=== PATIENT | female | born 1960 | race Caucasian/White ===

== ENCOUNTER → 2017-07-20 | Outpatient (CLI) | payer MEDICARE ==
[~2017-07-20] MED LIST: ALBU90OI INH; ALBU90OI61 INH; ALPR.5 PO
== END ==
LOC: LAB 16:14 → LAB SHORT 16:14
DX: R10.2 Pelvic and perineal pain (principal)
CPT/HCPCS: 87086

== ENCOUNTER 2022-06-25 04:22 | Inpatient (IN) | payer OTHER ==
[~2022-06-25] VITALS: Ht 157.5 cm; Wt 74.8 kg
[~2022-06-25 04:22] MED LIST changes: +ALBU2.5V5; +BREO ELLIPTA 11 EACH INH; +BUSP5 PO; +LEVO750 PO; +MONT10T PO; +PARO10 PO
[2022-06-25 05:16] LABS: BASOPHILS ABSOLUTE AUTO 0.07 K/mm3 (0.00-0.23); BASOPHILS PERCENT AUTO 0 % (0-2); EOSINOPHILS ABSOLUTE AUTO 0.15 K/mm3 (0.00-0.68); EOSINOPHILS PERCENT AUTO 1 % (0-6); Hemoglobin 12.7 g/dL (11.5-16.0); IMMATURE GRAN PERCENT AUTO 1 % (0-1); LYMPHOCYTES ABSOLUTE AUTO 2.57 K/mm3 (0.84-5.20); LYMPHOCYTES PERCENT AUTO 15 % (21-46); MONOCYTES ABSOLUTE AUTO 0.85 K/mm3 (0.16-1.47); MONOCYTES PERCENT AUTO 5 % (4-13); Mean Corpuscular HGB 30.5 pg (26.0-34.0); Mean Corpuscular HGB Conc 34.3 g/dL (31.5-36.5); Mean Corpuscular Volume 89 fL (80-100); Mean Platelet Volume 9.3 fL (9.1-12.4); NEUTROPHILS ABSOLUTE AUTO 13.94 K/mm3 (1.96-9.15); NEUTROPHILS PERCENT AUTO 79 % (41-73); Platelet Count 261 K/mm3 (150-400); RDW Coefficient Variation 12.6 % (11.7-14.2); RDW Standard Deviation 41.1 fL (35.1-46.3); Red Blood Cell Count 4.16 M/mm3 (3.80-5.20); White Blood Cell Count 17.68 K/mm3 (4.00-11.30)
[2022-06-25 05:26] LABS: Albumin, Blood 3.9 g/dL (3.4-5.0); Bilirubin, Total 0.4 mg/dL (0.1-1.0); Bun/Creatinine Ratio 19.9 (12.0-20.0); Calcium, Blood 9.5 mg/dL (8.5-10.1); Creatinine, Blood 0.45 mg/dL (0.40-1.00); Globulin, Blood 4.1 g/dL (2.2-4.0); Potassium, Blood 4.2 mmol/L (3.5-5.5)
--- NOTE | 2022-06-25 09:57 | NUR ---
LAB NOTIFIED RN OF CRITICAL LAB VALUE FOR PT, A LACTIC ACID OF 6.7. PROVIDER NOTIFIED, NO NEW ORDERS AT THIS TIME.
[2022-06-25] MEDS ORDERED: FLUO10 PO (10:34)
[2022-06-25] MEDS ORDERED: BREO ELLIPTA 11 EAC1 INH (10:36)
[2022-06-25] MEDS ORDERED: ALBU90OI INH (10:37)
--- NOTE | 2022-06-25 16:41 | NUR ---
SHIFT SUMMARY PT AOX4, INDEPENDENT IN THE ROOM. SHE WAS A NEW ED ADMIT AT THE START OF THE SHIFT. SHE HAS C/O PAIN AND MEDICATED PER THE EMAR. CURRENTLY HAS FLUIDS RUNNING AT 75/HOUR AFTER RECEIVING A FLUID BOLUS UPON HER ARRIVAL TO THE FLOOR. SHE HAS A LACTIC ACID OF 6.7 OF THIS AM, PROVIDER IS AWARE AND ORDERED THE FLUIDS. SHE IS ON 3 L NC, 2-3 L NC IS HER BASELINE AT HOME. SHE HAS BEEN COUGHING UP SPUTUM AND PROVIDER ORDERED MUCINEX. SHE HAS BEEN PLEASANT AND COOPERATIVE, MAKING HER NEEDS KNOWN. CALL LIGHT IS WITHIN REACH AND THE BED IN THE LOWEST POSITION. WILL REPORT TO ONCOMING NURSE.
[2022-06-26 05:03] LABS: BASOPHILS ABSOLUTE AUTO 0.03 K/mm3 (0.00-0.23); BASOPHILS PERCENT AUTO 0 % (0-2); EOSINOPHILS PERCENT AUTO 0 % (0-6); Hematocrit 36.4 % (33.0-51.0); Hemoglobin 12.1 g/dL (11.5-16.0); IMMATURE GRAN ABSOLUTE AUTO 0.17 K/mm3 (0.00-0.10); IMMATURE GRAN PERCENT AUTO 1 % (0-1); LYMPHOCYTES ABSOLUTE AUTO 1.36 K/mm3 (0.84-5.20); LYMPHOCYTES PERCENT AUTO 7 % (21-46); MONOCYTES ABSOLUTE AUTO 0.28 K/mm3 (0.16-1.47); MONOCYTES PERCENT AUTO 2 % (4-13); Mean Corpuscular HGB 30.1 pg (26.0-34.0); Mean Corpuscular HGB Conc 33.2 g/dL (31.5-36.5); Mean Corpuscular Volume 91 fL (80-100); Mean Platelet Volume 9.2 fL (9.1-12.4); NEUTROPHILS ABSOLUTE AUTO 17.19 K/mm3 (1.96-9.15); NEUTROPHILS PERCENT AUTO 90 % (41-73); Platelet Count 283 K/mm3 (150-400); RDW Coefficient Variation 12.9 % (11.7-14.2); RDW Standard Deviation 42.5 fL (35.1-46.3); Red Blood Cell Count 4.02 M/mm3 (3.80-5.20); White Blood Cell Count 19.03 K/mm3 (4.00-11.30)
[2022-06-26 05:29] LABS: Albumin, Blood 3.8 g/dL (3.4-5.0); Bilirubin, Total 0.4 mg/dL (0.1-1.0); Calcium, Blood 9.6 mg/dL (8.5-10.1); Creatinine, Blood 0.49 mg/dL (0.40-1.00); Magnesium, Blood 2.4 mg/dL (1.6-2.4); Potassium, Blood 3.9 mmol/L (3.5-5.5); Total Protein, Blood 7.8 g/dL (6.4-8.2)
--- NOTE | 2022-06-26 07:31 | NUR ---
MACHINE REPAIR PERSON SUMMARY: A&Ox4. PLEASANT AND COOPERATIVE WITH CARE. CALLS APPROPRIATELY AND IS ABLE TO COMMUNICATE NEEDS EFFECTIVELY. PRN APAP ADMINISTERED FOR C / O HEADACHE WITH LITTLE RELIEF. BLOOD PRESSURE ELEVATED LAST NIGHT; RECEIVED ORDER FOR HYDRALAZINE 5MG Q6H SBP >160. COMPLETED DOSE LR. LABS DRAWN THIS AM; NO CRITICAL RESULTS RECEIVED. REPORT TO ONCOMING RN.
--- NOTE | 2022-06-26 17:58 | NUR ---
SHIFT SUMMARY PT AOX4, NO ACUTE CHANGES. PT IS RUNNING A BIT HYPERTENSIVE AND WAS ADMINISTERED HYDRALYZINE PER THE EMAR. PT REMAINS AT BASELINE O2 AT 2-3 L NC AND SATING >92%. PLAN IS FOR HER TO POTENTIALLY DISCHARGE TOMORROW. LACTIC ACID HAS SIGNIFICANTLY DECREASED, PT AWARE. WILL REPORT TO ONCOMING NURSE.
--- NOTE | 2022-06-27 04:16 | NUR ---
OCCUPATIONAL THERAPIST PER DIEM SUMMARY NO ACUTE EVENTS THROUGHOUT THE NIGHT. A&OX4. PATIENT EFFECTIVELY COMMUNICATES NEEDS. RR EVEN AND UNLABORED ON 3L/MIN O2 WHILE AT REST. PATIENT DONS 2-3L/MIN O2 AT BASELINE. VSS. PRN HYDRALAZINE ADMINISTERED PER ORDERS FOR SBP >160. PATIENT APPEARED TO SLEEP WELL THIS SHIFT. BED LOW AND LOCKED. CALL LIGHT WITHIN REACH. THIS RN WILL CONINTUE TO MONITOR.
[2022-06-27 04:53] LABS: Hematocrit 34.8 % (33.0-51.0); Hemoglobin 11.6 g/dL (11.5-16.0); Mean Corpuscular HGB Conc 33.3 g/dL (31.5-36.5); Mean Corpuscular Volume 90 fL (80-100); Mean Platelet Volume 9.2 fL (9.1-12.4); Platelet Count 286 K/mm3 (150-400); RDW Coefficient Variation 13.2 % (11.7-14.2); RDW Standard Deviation 43.5 fL (35.1-46.3); Red Blood Cell Count 3.87 M/mm3 (3.80-5.20); White Blood Cell Count 23.02 K/mm3 (4.00-11.30)
[2022-06-27 05:13] LABS: Albumin, Blood 3.6 g/dL (3.4-5.0); Anion Gap 6 mmol/L (6-16); Blood Urea Nitrogen 21 mg/dL (8-24); Bun/Creatinine Ratio 47.9 (12.0-20.0); CO2, Blood 29 mmol/L (21-32); Calcium, Blood 9.2 mg/dL (8.5-10.1); Chloride, Blood 103 mmol/L (98-108); Creatinine, Blood 0.44 mg/dL (0.40-1.00); Glomerular Filtration Rate 110 (60-); Glucose, Blood 156 mg/dL (70-99); Phosphorus, Blood 3.7 mg/dL (2.5-4.9); Potassium, Blood 3.8 mmol/L (3.5-5.5); Sodium, Blood 138 mmol/L (136-145)
--- NOTE | 2022-06-27 17:42 | NUR ---
NOTE: CALLED PROVIDER ABOUT PT'S AFTERNOON BP AND SHE SAID NOT TO ADMINISTER ANY HYDRALYZINE AND NO NEW ORDERS WERE OBTAINED. SHE STATED OTHER FACTORS ARE PLAYING INTO THE BLOOD PRESSURE BUT TO LET HER KNOW IF THE PT STARTS TO HAVE A SEVERE KYLE OR BLURRED VISION. WILL PASS ON TO ONCOMING NURSE.
--- NOTE | 2022-06-27 17:43 | NUR ---
SHIFT SUMMARY PT AOX4, HAD WHAT APPEARED TO BE A PANIC ATTACK AT THE START OF THE SHIFT. AN ORDER FOR XANAX WAS OBTAINED FROM THE PROVIDER AND THE PT IMPROVED. THERE ARE NEW ORDERS PER THE EMAR. SINCE THAT INCIDENT, PT HAS HAD NO COMPLAINTS AND HAS BEE RESTING THIS AFTERNOON. SEE OTHER NOTE ABOUT PT'S AFTERNOON BP. WILL REPORT TO ONCOMING NURSE.
--- NOTE | 2022-06-28 03:11 | NUR ---
SENIOR ACCOUNT CLERK SUMMARY NO ACUTE EVENTS THROUGHOUT THE NIGHT. A&OX4. PATIENT EFFECTIVELY COMMUNICATES NEEDS. RR EVEN AND SLIGHTLY LABORED ON 3L/MIN O2 NC. VSS. PATIENT MEDICATED WITH XANAX PER EMAR. BED LOW AND LOCKED. CALL LIGHT WITHIN REACH. THIS RN WILL CONTINUE TO MONITOR.
[2022-06-28 05:51] LABS: BASOPHILS ABSOLUTE AUTO 0.05 K/mm3 (0.00-0.23); BASOPHILS PERCENT AUTO 0 % (0-2); EOSINOPHILS ABSOLUTE AUTO 0.03 K/mm3 (0.00-0.68); EOSINOPHILS PERCENT AUTO 0 % (0-6); Hemoglobin 11.9 g/dL (11.5-16.0); IMMATURE GRAN ABSOLUTE AUTO 0.28 K/mm3 (0.00-0.10); IMMATURE GRAN PERCENT AUTO 2 % (0-1); LYMPHOCYTES ABSOLUTE AUTO 4.51 K/mm3 (0.84-5.20); LYMPHOCYTES PERCENT AUTO 24 % (21-46); MONOCYTES PERCENT AUTO 6 % (4-13); Mean Corpuscular HGB 30.2 pg (26.0-34.0); Mean Corpuscular HGB Conc 33.1 g/dL (31.5-36.5); Mean Corpuscular Volume 91 fL (80-100); Mean Platelet Volume 9.1 fL (9.1-12.4); NEUTROPHILS ABSOLUTE AUTO 12.58 K/mm3 (1.96-9.15); NEUTROPHILS PERCENT AUTO 68 % (41-73); Platelet Count 285 K/mm3 (150-400); RDW Coefficient Variation 13.4 % (11.7-14.2); RDW Standard Deviation 45.1 fL (35.1-46.3); Red Blood Cell Count 3.94 M/mm3 (3.80-5.20); White Blood Cell Count 18.55 K/mm3 (4.00-11.30)
[2022-06-28 06:07] LABS: Albumin, Blood 3.4 g/dL (3.4-5.0); Anion Gap 4 mmol/L (6-16); Blood Urea Nitrogen 20 mg/dL (8-24); Bun/Creatinine Ratio 37.7 (12.0-20.0); CO2, Blood 31 mmol/L (21-32); Calcium, Blood 8.9 mg/dL (8.5-10.1); Chloride, Blood 103 mmol/L (98-108); Creatinine, Blood 0.53 mg/dL (0.40-1.00); Glomerular Filtration Rate 105 (60-); Glucose, Blood 88 mg/dL (70-99); Phosphorus, Blood 4.2 mg/dL (2.5-4.9); Potassium, Blood 3.3 mmol/L (3.5-5.5); Sodium, Blood 138 mmol/L (136-145)
[2022-06-28] MEDS ORDERED: ALPR.25 PO (11:20)
[2022-06-28] MEDS ORDERED: GUAI600T33 PO (11:20)
[2022-06-28] MEDS ORDERED: VISBIOME 112.51 EACH PO (11:21)
[2022-06-28] MEDS ORDERED: AZIT500 PO (11:22)
[2022-06-28] MEDS ORDERED: ALBU2.5V5 INH (11:22)
[2022-06-28] MEDS ORDERED: CEFD300 PO (11:23)
[2022-06-28] MEDS ORDERED: Deltasone 10 mg10 MG (11:27)
--- NOTE | 2022-06-28 15:00 | NUR ---
PATIENT D/C'D TO HOME WITH FAMILY. DC INSTRUCTIONS AND EDUCATION DISCUSSED WITH PATIENT AND COPY PROVIDED. NEBULIZER DROPPED OFF HERE PRIOR TO DC. PATIENT DENIES ANY FUTHER QUESTIONS OR CONCERNS.
== END 2022-06-28 15:31 | disposition home or self-care (01) | DRG 871 ==
LOC: ER 04:22 → MEDS 06:05
PROVIDERS: Emergency Medicine; Internal Medicine; ADMIT Student in an Organized Health Care Education/Training Program
DX: A41.9 Sepsis, unspecified organism (principal); J18.9 Pneumonia, unspecified organism; J44.0 Chronic obstructive pulmonary disease with (acute) lower respiratory infection; J44.1 Chronic obstructive pulmonary disease with (acute) exacerbation; J96.11 Chronic respiratory failure with hypoxia; E87.20 Acidosis, unspecified; Z66 Do not resuscitate; R91.8 Other nonspecific abnormal finding of lung field; R91.1 Solitary pulmonary nodule; R65.20 Severe sepsis without septic shock; E87.6 Hypokalemia; F41.9 Anxiety disorder, unspecified; F41.0 Panic disorder [episodic paroxysmal anxiety]; Z79.51 Long term (current) use of inhaled steroids; Z79.899 Other long term (current) drug therapy; Z98.891 History of uterine scar from previous surgery; Z90.710 Acquired absence of both cervix and uterus; Z90.722 Acquired absence of ovaries, bilateral; Z99.81 Dependence on supplemental oxygen; Z87.891 Personal history of nicotine dependence; Z98.890 Other specified postprocedural states; Z28.21 Immunization not carried out because of patient refusal
CPT/HCPCS: 36415; 71045; 80053; 80069; 83605; 83735; 84100; 84484; 85025; 85027; 87040; 93005; 93010; 94640; 94644; 94664; 94760; 96365; 96375; 99285-25; A9270; J0360; J0456; J0696; J1650; J2405; J2920; J2930; J3010; J7030; J7050; J7512

== ENCOUNTER 2022-08-22 03:20 | Inpatient (IN) | payer OTHER ==
[2022-08-22] VITALS (22 sets, daily range): BP systolic 150–187; BP diastolic 75–138
[~2022-08-22] VITALS: Ht 157.5 cm; Wt 76.6 kg
[~2022-08-22 03:20] MED LIST changes: +ALBU2.5V5 INH; +ALPR.25 PO; +AZIT500 PO; +BREO ELLIPTA 11 EAC1 INH; +CEFD300 PO; +Deltasone 10 mg10 MG; +FLUO10 PO; +GUAI600T33 PO; +VISBIOME 112.51 EACH PO
[2022-08-22 03:35] LABS: Calcium, Ionized (POC) 1.17 mmol/L (1.10-1.46); Chloride (POC) 95 mmol/L (98-108); Creatinine (POC) 0.5 mg/dL (0.6-1.0); Glucose (ISTAT POC) 311 mg/dL (70-99); Hemoglobin (POC) 14.6 g/dL (12.0-16.0); Potassium (POC) 3.2 mmol/L (3.5-5.5); Sodium (POC) 139 mmol/L (135-148); Total CO2 (POC) 32 mmol/L (21-32)
[2022-08-22 03:37] LABS: BASOPHILS ABSOLUTE AUTO 0.08 K/mm3 (0.00-0.23); BASOPHILS PERCENT AUTO 1 % (0-2); EOSINOPHILS ABSOLUTE AUTO 0.14 K/mm3 (0.00-0.68); EOSINOPHILS PERCENT AUTO 1 % (0-6); Hematocrit 39.6 % (33.0-51.0); Hemoglobin 13.3 g/dL (11.5-16.0); IMMATURE GRAN ABSOLUTE AUTO 0.15 K/mm3 (0.00-0.10); IMMATURE GRAN PERCENT AUTO 1 % (0-1); LYMPHOCYTES PERCENT AUTO 16 % (21-46); MONOCYTES ABSOLUTE AUTO 0.61 K/mm3 (0.16-1.47); MONOCYTES PERCENT AUTO 4 % (4-13); Mean Corpuscular HGB 30.6 pg (26.0-34.0); Mean Corpuscular HGB Conc 33.6 g/dL (31.5-36.5); Mean Corpuscular Volume 91 fL (80-100); NEUTROPHILS ABSOLUTE AUTO 13.31 K/mm3 (1.96-9.15); NEUTROPHILS PERCENT AUTO 78 % (41-73); Platelet Count 288 K/mm3 (150-400); RDW Coefficient Variation 12.4 % (11.7-14.2); RDW Standard Deviation 41.4 fL (35.1-46.3); Red Blood Cell Count 4.34 M/mm3 (3.80-5.20); White Blood Cell Count 17.09 K/mm3 (4.00-11.30)
[2022-08-22 03:37] LABS: Base Excess Venous 3.4 mmol/L; Bicarbonate Venous 25.5 mmol/L (24.0-30.0); PCO2 Venous 66.4 mmHg (38-42); pH Blood Venous 7.27 (7.34-7.37)
[2022-08-22 04:01] LABS: Albumin/Globulin Ratio 1.1 (0.8-1.8); Bilirubin, Total 0.5 mg/dL (0.1-1.0); Bun/Creatinine Ratio 25.2 (12.0-20.0); Calcium, Blood 8.7 mg/dL (8.5-10.1); Creatinine, Blood 0.48 mg/dL (0.40-1.00); Globulin, Blood 3.7 g/dL (2.2-4.0); Potassium, Blood 3.2 mmol/L (3.5-5.5); Total Protein, Blood 7.7 g/dL (6.4-8.2)
[2022-08-22 04:36] LABS: Influenza A, PCR NEGATIVE (NEGATIVE); Influenza B, PCR NEGATIVE (NEGATIVE); Resp Syncytial Virus, PCR NEGATIVE (NEGATIVE); SARS-Cov-2 (COVID-19) PCR, MMC NEGATIVE (NEGATIVE)
--- NOTE | 2022-08-22 06:20 | NUR ---
PATIENT ARRIVED TO ICU 10 VIA GURNEY FROM ED WITH BIPAP 16/8 FIO2 35% IN PLACE AND RT AT BEDSIDE. PATIENT TRANSFER TO BED USING SLIDER SHEET AND PLACED ON ICU MONITOR. PATIENT AWAKENS TO SLIGHT STIMULI, SPEECH MUMBLED SLIGHTLY, FALLING BACK TO SLEEP WHEN UNDISTURBED.
--- NOTE | 2022-08-22 07:32 | NUR ---
Assumed care at 0700. Report received from tian ROBBINS. Pt resting in bed, on Bipap, 09/11, 35%. Vancomycin and K+ infusing at time of report. Pt resting comfortably, no acute needs at time of report. Will continue to monitor.
[2022-08-22 10:08] LABS: Base Excess Venous 1.8 mmol/L; Bicarbonate Venous 24.9 mmol/L (24.0-30.0); PCO2 Venous 51.1 mmHg (38-42); pH Blood Venous 7.34 (7.34-7.37)
--- NOTE | 2022-08-22 18:33 | NUR ---
Shift summary. Pt much improved throughout shift, able to come off bipap at beginning of shift, currently on 02 at 3 L/min. Able to ambulate w/o desatting, does get short of breath and tachypnic when standing and moving around. Up to bedside commode several times and in chair for much of shift. No acute events. Status changed to PCU this am per Dr. Aquino. See assessment for further details. Will continue to monitor and report off to tian ROBBINS.
--- NOTE | 2022-08-22 19:45 | NUR ---
PATIENT UP TO BSC WITH 1 PERSON STANDBY ASSIST. VERY SOB WITH SLIGHT ACTIVITY. ABLE TO MAINTAIN BIOX > 90 ON 2L/NC, ABLE TO RECOVER ONCE IN BED RESTING. LUNG SOUNDS DECREASED T/O. PATIENT VERBALIZED THAT SHE IS FEELING BETTER THAN THIS MORNING.
[2022-08-23] VITALS (12 sets, daily range): BP systolic 142–195; BP diastolic 78–91
[2022-08-23 04:00] LABS: Bun/Creatinine Ratio 20.2 (12.0-20.0); Calcium, Blood 9.3 mg/dL (8.5-10.1); Creatinine, Blood 0.79 mg/dL (0.40-1.00); Potassium, Blood 3.8 mmol/L (3.5-5.5)
[2022-08-23 06:30] LABS: Hematocrit 34.8 % (33.0-51.0); Hemoglobin 11.9 g/dL (11.5-16.0); Mean Corpuscular HGB 30.7 pg (26.0-34.0); Mean Corpuscular HGB Conc 34.2 g/dL (31.5-36.5); Mean Corpuscular Volume 90 fL (80-100); Mean Platelet Volume 9.3 fL (9.1-12.4); Platelet Count 247 K/mm3 (150-400); RDW Coefficient Variation 12.6 % (11.7-14.2); RDW Standard Deviation 41.3 fL (35.1-46.3); Red Blood Cell Count 3.87 M/mm3 (3.80-5.20); White Blood Cell Count 18.65 K/mm3 (4.00-11.30)
--- NOTE | 2022-08-23 06:39 | NUR ---
SUMMARY PATIENT SLEEPING OFF AND ON T/O NIGHT. OXYGEN 2L/NC IN PLACE T/O NIGHT, CONTINUES TO BE SOB WITH SLIGHT ACTIVITY, PATIENT VERBALIZED SHE FEELS LIKE SHE IS AT HER BASELINE. UP TO BSC WITH MIN ASSIST.
--- NOTE | 2022-08-23 09:05 | NUR ---
AM NOTE... ASSUMED CARE OF PT AT 0700, PT IS A&Ox4. SHE IS ON 2L NC WITH O2 SATS >90% L/S VERY DIM T/O WITH SOME SCATTERED WHEEZES. PT BECOMES SOB WITH ACTIVITY AND RECOVERS SLOWLY. SHE IS IN SR IN THE 90'S BP IS STABLE. NO EDEMA NOTED ON THIS ASSESSMENT. SHE IS A SBA TO THE BSC. PT IS ANXIOUS TO GO HOME TODAY BUT PLAN IS TO KEEP HER ANOTHER 24HRS AT LEAST PER DR. VALDOVINOS WILL CONTINUE TO MONITOR.
--- NOTE | 2022-08-23 13:19 | NUR ---
PT TRANSFER.... REPORT WAS GIVEN TO AIDE IN PCU, ALL OF PT'S BELONGINGS WERE PACKED AND SENT WITH THE PT. PT'S VS STABLE A THE TIME OF TRANSFER. PT'S SON AND DAUGHTER AT THE BEDSIDE DURING THIS TIME AND FOLLOWED PT TO PCU 19. PT WAS TAKEN TO PCU IN A W/C.
--- NOTE | 2022-08-23 18:53 | NUR ---
SHIFT SUMMARY PT A&OX4. COMPLIANT WITH CARE. O2 STATS HAVE MAINTAINED <90% ON 4L VIA NC. SINUS RHYTHM, SINUS TACHICARDIA, TACHYPNEA. PATIENT PREFERS TO BE INDEPENDENT IN THE ROOM. REQUIRES REMINDERS TO NOTIFY STAFF WHEN NEEDING TO GET UP DUE TO HER BREATHING. BP INCREASED FROM 160 TO 195 AT END OF SHIFT. LOWERED TO 165 WITH LABETALOL IV. WILL REPORT TO NOC NURSE TO CONTINUE MONITORING.
[2022-08-24] VITALS (9 sets, daily range): BP systolic 137–181; BP diastolic 63–109
--- NOTE | 2022-08-24 03:07 | NUR ---
PHYSICIAN COMMUNICATION CONTACTED BEAN PICKER MACHINE OPERATOR RESIDENT, DR GARCIA, TO INFORM HER THAT THE PATIENT HAD A SUDDEN CHANGE IN CONDITION. SHE BECAME SEVERELY SHORT OF BREATH, WAS TACHYCARDIC IN THE 140'S, TACHYPNIC WITH ACCESSORY MUSCLE USE, AND DESATED REQUIRING TO BE PLACED ON A NONREBREATHER WITH A BREATHING TREATMENT. RT PLACED PATIENT ON BIPAP TO HELP SUPPORT WORK OF BREATHING BUT THE PATIENT HAD ISSUES WITH ANXIETY IN THE ICU WHILE ON THE BIPAP. THIS RN ASKED DR GARCIA FOR SOMETHING TO HELP WITH THE PAITENT'S ANXIETY. DR GARCIA ORDERED A ONE TIME DOSE OF 0.5 MG ATIVAN IV. THIS RN ALSO RELAYED THAT IT HAD BEEN A WHILE SINCE THE PATIENT HAD A VBG, DR GARCIA ORDERED THIS WELL. WILL CONTINUE TO MONITOR.
[2022-08-24 03:55] LABS: Base Excess Venous 3.4 mmol/L; Bicarbonate Venous 27.4 mmol/L (24.0-30.0); PCO2 Venous 38.2 mmHg (38-42); pH Blood Venous 7.46 (7.34-7.37)
--- NOTE | 2022-08-24 06:01 | NUR ---
SHIFT SUMMARY PATIENT ALERT AND ORIENTED X4. RT PLACED PATIENT ON BIPAP THIS MORNING AND MEDICATED PER EMAR WITH ATIVAN DUE TO PATIENT'S SUDDEN ONSET OF SHORTNESS OF BREATH AND WORK OF BREATHING. HER BREATHING, WHILE STILL TACHYPNIC, HAS SLOWED AND PATIENT IS CURRENTLY RESTING QUIETLY. BLOOD PRESSURE STABLE AND HEART IS SINUS RHYTHM IN THE 90'S. WILL CONTINUE TO MONITOR. CALL LIGHT WITHIN REACH.
--- NOTE | 2022-08-24 08:29 | NUR ---
PT A&OX4. PT SITTING AT THE EDGE OF THE BED. PT STATES THAT SHE IS STILL SHORT OF BREATH. SPO2 93% ON 2L NC. PT ABLE TO WALK TO THE BATHROOM UNASSISTED TO VOID. SPO2 90% WHEN SHE GOT BACK TO BED.
--- NOTE | 2022-08-24 15:27 | NUR ---
Blood pressure 181/83(111); labetolol given per prn orders .
--- NOTE | 2022-08-24 17:11 | NUR ---
SHIFT SUMMARY PT A&OX4, COMPLIANT WITH CARE. HR 90S, SPO2 >90 ON 1.5L O2 VIA NASAL CANNULA. AT 1513 BP ELEVATED TO 181/83. LABETALOL GIVEN AND BP DECREASED TO 149/87. PT EXPERIENCED TRANSIENT DIZZYNESS WHILE STANDING AFTER MEDIATION WAS GIVEN. VITALS REMAINED STABLE. NEW ORDER FOR XANAX WAS ADDED FOR ANXIETY WITH BIPAP AT NIGHT. DENTAL HYGENIST FOUND THRUSH IN BACK OF MOUTH. PT STARTED ON NYSTATIN ORAL WASH. REPEAT CHEST XRAY DONE AND SHOWS IMPROVEMENT. CONTINUE MONITORING RESPIRATORY STATUS.
[2022-08-25] VITALS (9 sets, daily range): BP systolic 152–175; BP diastolic 76–105
--- NOTE | 2022-08-25 06:47 | NUR ---
SHIFT SUMMARY PATIENT ALERT AND ORIENTED X4. UPON INITIAL ASSESMENT, PATIENT WAS TACHYPNIC AND APPEARED TO BE SHORT OF BREATH AT REST. SHE WAS MEDICATED WITH XANAX PER EMAR AND CHOSE TO WEAR THE BIPAP OVERNIGHT. PATIENT REPORTS THAT SHE IS BREATHING BETTER THIS MORNING. VITAL SIGNS STABLE. NO ACUTE ISSUES NOTED OVERNIGHT. WILL CONTINUE TO MONITOR. CALL LIGHT WITHIN REACH.
[2022-08-25 07:07] LABS: Hemoglobin 12.4 g/dL (11.5-16.0); Mean Corpuscular HGB 30.2 pg (26.0-34.0); Mean Corpuscular HGB Conc 32.6 g/dL (31.5-36.5); Mean Corpuscular Volume 93 fL (80-100); Mean Platelet Volume 9.3 fL (9.1-12.4); Platelet Count 282 K/mm3 (150-400); RDW Standard Deviation 44.3 fL (35.1-46.3)
[2022-08-25 07:33] LABS: Bun/Creatinine Ratio 26.8 (12.0-20.0); Calcium, Blood 9.2 mg/dL (8.5-10.1); Creatinine, Blood 0.79 mg/dL (0.40-1.00)
--- NOTE | 2022-08-25 10:51 | NUR ---
PT TOOK A SHOWER TODAY AND IS SITTING IN THE CHAIR AT BEDSIDE. PT STATES "BREATHING FEELS BETTER TODAY". MEDICATED PER ORDERS. WILL CONTINUE TO MONITOR BLOOD PRESSURE.
--- NOTE | 2022-08-25 18:49 | NUR ---
SHIFT SUMMARY A&OX4, COMPLIANT WITH CARE. PT TOOK A SHOWER THIS MORNING. DR. CARTER ADDED LISINOPRIL TO HER MEDICATION TO HELP CONTROL HER BLOOD PRESSURE. NO LABETALOL WAS NEEDED DURING THE SHIFT. SPO2>91% ON 2L O2 VIA NASAL CANNULA. CONINUE TO MONITOR BP AND RESPIRATORY STATUS.
[2022-08-26 03:25] VITALS: BP 171/84
[2022-08-26 04:01] VITALS: BP 155/81
--- NOTE | 2022-08-26 04:06 | NUR ---
SHIFT SUMMARY NO ACUTE CHANGES THIS SHIFT. AXO4. IN SR/ST DEPENDING ON ACTIVITY LEVEL. HTN NOTED BUT LESS THAN THE 175SBP REQUIREMENT OF THE ORDERED PRN LABETOLOL. PT ON 2LNC WHILE AWAKE, 2L BLEEDIN TO BIPAP WHILE SLEEPING. PT HAS BEEN TOLERATING THE BIPAP POST ALPRAZOLAM DOSE. SOME ANXIETY MOMENTS NOTED, ABLE TO TALK THROUGH THEM AND KEEP MASK ON. PT HAS BEEN INDEPENDENT IN ROOM BUT USES CALL LIGHT APPROPRIATELY FOR ASSISTANCE. OTHERWISE, RESTING QUIETELY THIS SHIFT.
[2022-08-26 04:19] LABS: Bun/Creatinine Ratio 28.9 (12.0-20.0); Calcium, Blood 8.8 mg/dL (8.5-10.1); Creatinine, Blood 0.8 mg/dL (0.40-1.00); Potassium, Blood 3.9 mmol/L (3.5-5.5)
[2022-08-26 08:03] VITALS: BP 169/77
--- NOTE | 2022-08-26 14:10 | NUR ---
TRANSFER TO MEDICAL PT MADE MEDICAL NO TELE STATUS. A&O X4. VSS. SPO2 > 92% ON 2L NC WHICH IS PT's REPORTED HOME O2 USE. PT W/ LABORED BREATHING W/ ACTIVITY, BUT SPO2 REMAINING > 92%. W/ REQUEST FOR PT TO REMAIN OFF BIPAP TONIGHT IF PT NOT NEEDING. MONITOR SHOWING NSR, HR 80s-90s PRIOR TO TELEMETRY DC. PT INDEPENDENT IN RM. REPORT GIVEN TO ACCEPTING MEDICAL FLOOR RN & PT TAKEN TO RM 308 BY WHEEL CHAIR W/ BELONGINGS @ APPROX [id number].
[2022-08-26 14:22] VITALS: BP 132/73
--- NOTE | 2022-08-26 17:29 | NUR ---
PATIENT IS ALERT AND ORIENTED AND COOPERATIVE WITH CARE. PATIENT DOES C/O ANXIETY WITH WEARING THE BIPAP. DR. CHAMORRO ASKED THAT THE PATIENT TRIAL NOT WEARING THE BIPAP TONIGHT, THIS WAS PASSED ON TO THE PATIENT. SADI DID DROP OFF THE PATIENT'S HOME BIPAP THIS AFTERNOON. BP THIS AFTERNOON IS 132/73 WHICH IS DOWN FROM 169/77 THIS MORNING. THE PATIENT TRANSFERRED TO ROOM 308 THIS AFTERNOON. ON 2L O2 VIA NC. INDEPENDENT IN HER ROOM. WILL CONTINUE TO MONITOR
[2022-08-26 19:46] VITALS: BP 151/77
[2022-08-27 03:35] VITALS: BP 151/85
--- NOTE | 2022-08-27 04:33 | NUR ---
FERMENTER WINE SUMMARY VSS. UP AD ALBERTO, O2 PER NC AT 2L/MIN. LUNG SOUNDS DIMINISHED IN LOWER LOBES PER AUSCULTATION. RECEIVING ANTIBIOTICS AND RESPIRATORY MEDS TO ASSIST IN TREATMENT OF RESPIRATORY NEEDS. HAS BEEN RESTING QUIETLY WITH FEW INTERRUPTIONS. CALL LIGHT IN REACH. WILL CONTINUE TO MONITOR
[2022-08-27 07:07] VITALS: BP 121/97
[2022-08-27 14:06] LABS: BASOPHILS ABSOLUTE AUTO 0.07 K/mm3 (0.00-0.23); BASOPHILS PERCENT AUTO 1 % (0-2); EOSINOPHILS PERCENT AUTO 0 % (0-6); Hematocrit 35.2 % (33.0-51.0); Hemoglobin 11.7 g/dL (11.5-16.0); IMMATURE GRAN ABSOLUTE AUTO 0.58 K/mm3 (0.00-0.10); IMMATURE GRAN PERCENT AUTO 4 % (0-1); LYMPHOCYTES ABSOLUTE AUTO 1.08 K/mm3 (0.84-5.20); LYMPHOCYTES PERCENT AUTO 8 % (21-46); MONOCYTES ABSOLUTE AUTO 0.35 K/mm3 (0.16-1.47); MONOCYTES PERCENT AUTO 3 % (4-13); Mean Corpuscular HGB 30.6 pg (26.0-34.0); Mean Corpuscular HGB Conc 33.2 g/dL (31.5-36.5); Mean Corpuscular Volume 92 fL (80-100); Mean Platelet Volume 9.5 fL (9.1-12.4); NEUTROPHILS ABSOLUTE AUTO 11.59 K/mm3 (1.96-9.15); NEUTROPHILS PERCENT AUTO 85 % (41-73); NRBC ABSOLUTE 0.03 K/mm3 (0.00-0.02); NRBC Auto 0.2 /100 WBC (0.0-0.2); Platelet Count 269 K/mm3 (150-400); RDW Coefficient Variation 13.1 % (11.7-14.2); RDW Standard Deviation 43.6 fL (35.1-46.3); Red Blood Cell Count 3.82 M/mm3 (3.80-5.20); White Blood Cell Count 13.67 K/mm3 (4.00-11.30)
[2022-08-27 14:23] LABS: Bun/Creatinine Ratio 29.1 (12.0-20.0); Calcium, Blood 8.3 mg/dL (8.5-10.1); Creatinine, Blood 0.86 mg/dL (0.40-1.00)
[2022-08-27 15:43] VITALS: BP 165/69
--- NOTE | 2022-08-27 15:54 | NUR ---
PATIENT IS ALERT AND ORIENTED AND COOPERATIVE WITH CARE. PATIENT REPORTS THAT SHE DID NOT USE THE BIPAP OVERNIGHT. SHE IS INDEPENDENT IN THE ROOM. ON 2L O2 VIA NC. C/O DYSPNEA WITH EXERTION. HER APPETITE IS GOOD. PATIENT STATES SHE STILL FEELS WEAK AND NOT BACK TO BASELINE AND WOULD LIKE TO STAY ANOTHER NIGHT. WILL CONTINUE TO MONITOR
[2022-08-27 16:22] VITALS: BP 150/67
[2022-08-27 19:14] VITALS: BP 163/86
[2022-08-28] MEDS ORDERED: ALPR.25 PO (04:16)
[2022-08-28] MEDS ORDERED: GUAI600T33 PO (04:17)
[2022-08-28] MEDS ORDERED: PROBIOTIC1 EA14 PO (04:17)
[2022-08-28] MEDS ORDERED: CEFD300 PO (04:18)
[2022-08-28] MEDS ORDERED: FLUO10 PO (04:19)
[2022-08-28 05:22] VITALS: BP 162/73
--- NOTE | 2022-08-28 06:40 | NUR ---
SHIFT SUMMERY, PT HAD A SLEEP STUDY THIS NIGHT. PT DID NOT HAVE MUCH SLEEP. PT FEELING ANXIOUS AND NOT ABLE TO GET COMFORTABLE. PT UP INDEPENDANT CALL LIGHT IN REACH.
[2022-08-28 07:36] VITALS: BP 150/70
[2022-08-28] MEDS ORDERED: Prinivil10 MG PO (13:34)
[2022-08-28] MEDS ORDERED: PRED20 PO (13:35)
[2022-08-28] MEDS ORDERED: AMOCLA875 PO (13:36)
[2022-08-28] MEDS ORDERED: VISBIOME 112.51 EACH PO (13:36)
--- NOTE | 2022-08-28 15:44 | NUR ---
DC/SHIFT SUMMARY: Pt remains A&O this shift. Denies pain, Shortness of breath. Resp even nonlabored on 2L NC which is home 02 baseline. Nebulizer tx this am for exp wheeze. Pt states has nebulizer at home. [facility] home bipap at bedside and will take home. Pt states has been educated on use and understands how to use. Instructed to call co if further questions arise. Ambulating independently to bathroom. BM this am per pt. All discharge instrucions reviewed with pt and her son who has brought her portable oxygen. Pt to main lobby via wheelchair by staff.
== END 2022-08-28 15:48 | disposition home or self-care (01) | DRG 871 ==
LOC: ER 03:20 → ICUW 04:56 → PCU 04:56 → ICUW 06:20 → PCU 08-23 13:30 → MEDS 08-26 14:13
PROVIDERS: Emergency Medicine; Family Medicine; Family Medicine Adult Medicine; ADMIT Internal Medicine
PROC: 3E03329 Introduction of Other Anti-infective into Peripheral Vein, Percutaneous Approach (ICD-10-PCS; principal; 2022-08-22)
PROC: 5A09457 Assistance with Respiratory Ventilation, 24-96 Consecutive Hours, Continuous Positive Airway Pressure (ICD-10-PCS; 2022-08-22)
DX: A41.9 Sepsis, unspecified organism (principal); J18.9 Pneumonia, unspecified organism; J96.22 Acute and chronic respiratory failure with hypercapnia; J96.21 Acute and chronic respiratory failure with hypoxia; J44.0 Chronic obstructive pulmonary disease with (acute) lower respiratory infection; I47.1 Supraventricular tachycardia; J44.1 Chronic obstructive pulmonary disease with (acute) exacerbation; E87.29 Other acidosis; Z66 Do not resuscitate; E87.6 Hypokalemia; I10 Essential (primary) hypertension; R91.1 Solitary pulmonary nodule; Z20.822 Contact with and (suspected) exposure to COVID-19; F41.0 Panic disorder [episodic paroxysmal anxiety]; Z90.710 Acquired absence of both cervix and uterus; Z90.722 Acquired absence of ovaries, bilateral; Z98.890 Other specified postprocedural states; Z79.899 Other long term (current) drug therapy; Z79.51 Long term (current) use of inhaled steroids; Z99.81 Dependence on supplemental oxygen; Z79.52 Long term (current) use of systemic steroids; Z87.891 Personal history of nicotine dependence
CPT/HCPCS: 0241U; 36415; 71045; 80047; 80048; 80053; 82803; 83605; 83880; 84132; 84484; 85014; 85025; 85027; 87040; 87070; 87205; 93005; 93010; 94640; 94644; 94660; 94664; 94760; 94762; 96365; 96375; 97112; 97161; 97165; 97535; 99285-25; A9270; J1650; J2060; J2543; J2920; J2930; J3370; J3480; J7050; J7120

== ENCOUNTER 2022-12-11 11:50 | Emergency (ER) | payer OTHER ==
[~2022-12-11] VITALS: Ht 157.5 cm; Wt 80.7 kg
[~2022-12-11 11:50] MED LIST changes: +AMOCLA875 PO; +PRED20 PO; +PROBIOTIC1 EA14 PO; +Prinivil10 MG PO
[2022-12-11 12:34] LABS: BASOPHILS ABSOLUTE AUTO 0.06 K/mm3 (0.00-0.23); BASOPHILS PERCENT AUTO 1 % (0-2); EOSINOPHILS ABSOLUTE AUTO 0.19 K/mm3 (0.00-0.68); EOSINOPHILS PERCENT AUTO 2 % (0-6); Hematocrit 38.7 % (33.0-51.0); Hemoglobin 12.8 g/dL (11.5-16.0); IMMATURE GRAN ABSOLUTE AUTO 0.08 K/mm3 (0.00-0.10); IMMATURE GRAN PERCENT AUTO 1 % (0-1); LYMPHOCYTES ABSOLUTE AUTO 2.42 K/mm3 (0.84-5.20); LYMPHOCYTES PERCENT AUTO 21 % (21-46); MONOCYTES ABSOLUTE AUTO 0.99 K/mm3 (0.16-1.47); MONOCYTES PERCENT AUTO 8 % (4-13); Mean Corpuscular HGB 30.8 pg (26.0-34.0); Mean Corpuscular HGB Conc 33.1 g/dL (31.5-36.5); Mean Corpuscular Volume 93 fL (80-100); Mean Platelet Volume 8.9 fL (9.1-12.4); NEUTROPHILS ABSOLUTE AUTO 8.03 K/mm3 (1.96-9.15); NEUTROPHILS PERCENT AUTO 68 % (41-73); Platelet Count 269 K/mm3 (150-400); RDW Coefficient Variation 14.1 % (11.7-14.2); RDW Standard Deviation 47.6 fL (35.1-46.3); Red Blood Cell Count 4.16 M/mm3 (3.80-5.20); White Blood Cell Count 11.77 K/mm3 (4.00-11.30)
[2022-12-11 12:57] LABS: Albumin, Blood 3.8 g/dL (3.4-5.0); Bilirubin, Total 0.5 mg/dL (0.1-1.0); Bun/Creatinine Ratio 14.6 (12.0-20.0); Creatinine, Blood 0.76 mg/dL (0.40-1.00); Globulin, Blood 3.9 g/dL (2.2-4.0); Potassium, Blood 3.9 mmol/L (3.5-5.5); Total Protein, Blood 7.7 g/dL (6.4-8.2)
[2022-12-11 13:06] LABS: Influenza A, PCR NEGATIVE (NEGATIVE); Influenza B, PCR NEGATIVE (NEGATIVE); Resp Syncytial Virus, PCR NEGATIVE (NEGATIVE); SARS-Cov-2 (COVID-19) PCR, MMC NEGATIVE (NEGATIVE)
[2022-12-11 13:27] LABS: Magnesium, Blood 2.3 mg/dL (1.6-2.4); Phosphorus, Blood 3.8 mg/dL (2.5-4.9)
[2022-12-11 20:30] VITALS: BP 139/62
== END 2022-12-11 20:50 | disposition home or self-care (01) ==
LOC: ER 11:50
PROVIDERS: Emergency Medicine; Student in an Organized Health Care Education/Training Program
DX: J44.1 Chronic obstructive pulmonary disease with (acute) exacerbation (principal); Z20.822 Contact with and (suspected) exposure to COVID-19; Z87.891 Personal history of nicotine dependence; Z79.51 Long term (current) use of inhaled steroids; Z79.899 Other long term (current) drug therapy
CPT/HCPCS: 0241U; 71046; 71260; 76705; 80053; 83735; 84100; 84145; 84484; 85025; 85379; 93005; 93010; 94640; 94664; 96374; 99285-25; J2930; Q9967